=== PATIENT | female | born 1930 | race Caucasian/White ===

== ENCOUNTER 2018-05-09 13:56 | Outpatient (CLI) | payer MEDICARE, OTHER ==
--- NOTE | 2018-05-09 15:45 | XRAY Report ---
Reason: COUGH Procedure Date: 05/09/2018 Accession Number: [id number] / [id number] Procedure: WCP - Chest 2 View X-Ray CPT Code: 51016 FULL RESULT: EXAM: CHEST RADIOGRAPHY EXAM DATE: 05/09/2018 02:18 PM. CLINICAL HISTORY: Cough. COMPARISON: None. TECHNIQUE: 2 views. FINDINGS: Lungs/Pleura: No focal opacities evident. No pleural effusion. No pneumothorax. Normal volumes. Mediastinum: Calcic cases of the aortic arch, cardiac silhouette within limits for size. Other: Surgical clips in the epigastric region. IMPRESSION: No pneumonia. RADIA
== END 2018-05-09 13:57 | disposition home or self-care (01) ==
LOC: DI.WCP 13:56
PROVIDERS: ATTEND Physician Assistant
DX: R05 Cough (principal)
CPT/HCPCS: 71046

== ENCOUNTER 2018-09-04 11:21 | Outpatient (CLI) | payer MEDICARE, OTHER ==
[2018-09-04 19:07] LABS: BASOPHILS # (AUTO) 0.1 10^3/uL (0.0-0.1); BASOPHILS % (AUTO) 1.5 %; EOSINOPHILS # (AUTO) 0.4 10^3/uL (0.0-0.7); EOSINOPHILS % (AUTO) 4.8 %; HGB - HEMOGLOBIN 14.1 g/dL (12.0-16.0); LYMPHOCYTES # (AUTO) 1.3 10^3/uL (1.5-3.5); LYMPHOCYTES % (AUTO) 17.1 %; MEAN CORPUSCULAR HEMOGLOBIN 28.3 pg (27.0-31.0); MEAN CORPUSCULAR HGB CONC 30.5 g/dL (32.0-36.0); MEAN CORPUSCULAR VOLUME 92.8 fL (81.0-99.0); MEAN PLATELET VOLUME 11.8 fL (7.9-10.8); MONOCYTES % (AUTO) 12.7 %; NEUTROPHILS # (AUTO) 4.8 10^3/uL (1.5-6.6); NEUTROPHILS % (AUTO) 63.5 %; PLT - PLATELET COUNT 228 10^3/uL (130-450); RED BLOOD COUNT 4.99 10^6/uL (4.20-5.40); RED CELL DISTRIBUTION WIDTH 13.7 % (12.0-15.0); WHITE BLOOD COUNT 7.6 x10^3/uL (4.8-10.8)
[2018-09-04 19:30] LABS: ALBUMIN/GLOBULIN RATIO 1.5 (1.0-2.2); BILIRUBIN,TOTAL 0.9 mg/dL (0.2-1.0); CALCIUM 9.7 mg/dL (8.5-10.3); CREATININE 1.3 mg/dL (0.4-1.0); TOTAL PROTEIN 6.6 g/dL (6.7-8.2)
== END 2018-09-04 11:22 | disposition home or self-care (01) ==
LOC: LAB.WCP 11:21
PROVIDERS: ATTEND Physician Assistant
DX: J44.1 Chronic obstructive pulmonary disease with (acute) exacerbation (principal); R63.5 Abnormal weight gain; N95.1 Menopausal and female climacteric states
CPT/HCPCS: 36415; 80053; 83880; 84443; 85025

== ENCOUNTER 2018-09-06 11:37 | Outpatient (CLI) | payer MEDICARE, OTHER ==
[2018-09-06] MEDS ORDERED: IOVERSOL 320 100 ML VIAL IVP ONE ×2 (11:58→15:15)
[2018-09-06] MEDS ORDERED: IOVERSOL 320 50 ML VIAL ONE (11:58)
[2018-09-06] MEDS ORDERED: IOVERSOL 320 50 ML VIAL PO ONE (15:15)
--- NOTE | 2018-09-06 15:59 | CT Report ---
Reason: SHORTNESS OF BREATH,FORMER SMOK,ABDOMINAL PAIN Procedure Date: 09/06/2018 Accession Number: [id number] / [id number] Procedure: CT - Abdomen/Pelvis W CPT Code: FULL RESULT: EXAM: CT CHEST, ABDOMEN AND PELVIS EXAM DATE: 09/06/2018 01:02 PM. CLINICAL HISTORY: Shortness of breath, former smoker, abdominal pain. COMPARISONS: CHEST W/ 09/06/2018 12:48 PM. TECHNIQUE: Routine helical CT imaging was performed through the chest, abdomen, and pelvis. IV contrast: 90 mL Optiray 320. Enteric contrast: No. Reconstructions: Coronal and sagittal. In accordance with CT protocol optimization, one or more of the following dose reduction techniques were utilized for this exam: automated exposure control, adjustment of mA and/or KV based on patient size, or use of iterative reconstructive technique. FINDINGS: Lungs/Pleura: The lungs demonstrates bilateral peripheral fine interstitial thickening in an upper lobe predominant distribution with a few tree-in-bud opacities peripherally. Both lung bases demonstrate mild bronchiectasis posteriorly. In this setting, a few lung nodules are detected which measure 5 mm or less. Right upper lobe 4 mm nodule image 20 series 3. Right middle lobe 4 mm nodule image 34. Left upper lobe 4 mm nodule image 24. No lobar consolidation or dominant lung mass. No pleural effusion or pneumothorax. Mediastinum: There is left ventricular hypertrophy. There are mild to moderate calcifications of the coronary vessels. There is no pericardial effusion. There is no mediastinal lymphadenopathy by size criteria. There are moderate calcifications of the thoracic aorta. Liver: Normal. Gallbladder/Bile Ducts: Unremarkable. Spleen: Normal. Pancreas: Normal. Adrenal Glands: Normal. Kidneys: Normal. No masses or hydronephrosis. Peritoneal Cavity/Bowel: There is thickening of the cecal wall as well as abnormally narrow caliber appearance of the terminal ileum without acute inflammatory stranding in the pericecal region. There is extensive essentially pancolonic diverticulosis. There is no free fluid or free air. There is no bowel obstruction. There is no lymphadenopathy. A 0.9 cm calcification is seen in the omentum. Pelvic Organs: Evaluation of the pelvis is somewhat limited by streak artifact from the hip prosthesis. Within these limitations no gross abnormality is detected. Vasculature: There is extensive atherosclerotic disease without abdominal aortic aneurysm. Bones: Patient is status post right total hip arthroplasty and status post lower lumbar spine posterior fusion and decompression. No aggressive osseous lesions are seen. Other: None. IMPRESSION: Cecal wall thickening and abnormally narrow caliber appearance of the terminal ileum. Recommendation: Consideration for colonoscopy and correlation to potential history of inflammatory bowel disease. Recommend follow-up of the described nodule(s) according to the following guidelines: Fleischner Society Recommendations 2017 MacMahon et al. Radiology 2017 Solid Nodules-Low Risk Patients: <6 mm (single or multiple) - No routine follow-up* Solid Nodules-High Risk Patients: <6 mm (single or multiple) -Optional CT at 12 months* *Nodules < 6mm do not require routine follow-up, but suspicious nodule morphology, upper lobe location, or both may warrant 12 month follow-up RADIA
== END 2018-09-06 11:38 | disposition home or self-care (01) ==
LOC: DI 11:37
PROVIDERS: ATTEND Physician Assistant
DX: R10.9 Unspecified abdominal pain (principal); R06.02 Shortness of breath; Z87.891 Personal history of nicotine dependence
CPT/HCPCS: 74177; Q9967

== ENCOUNTER 2018-09-12 14:19 | Outpatient (CLI) | payer MEDICARE, OTHER ==
--- NOTE | 2018-09-12 15:06 | XRAY Report ---
Reason: BACK PAIN Procedure Date: 09/12/2018 Accession Number: [id number] / [id number] Procedure: XRN - Lumbar Spine 2 View CPT Code: FULL RESULT: EXAM: LUMBOSACRAL SPINE RADIOGRAPHY EXAM DATE: 09/12/2018 02:37 PM. CLINICAL HISTORY: Back pain. COMPARISONS: ABDOMEN/PELVIS W/ 09/06/2018 12:48 PM. TECHNIQUE: 3 views. FINDINGS: Lateral views are degraded by motion. Alignment: The patient is status post posterior fusion of L4 on L5 with bilateral pedicle screws and interconnecting rods with suggestion of intervening bone graft in the disk space, appearance of incomplete fusion with approximately 0.8 cm anterolisthesis of L4 on L5 which is greater than what is demonstrated on the recent CT abdomen and pelvis, possibly due to technique given marked motion degradation of the lateral views. There is apparent minimal retrolisthesis of L2 on L3, approximately 4 mm, similar to the CT appearance. AP projection demonstrates S-shaped thoracolumbar scoliosis. Bones: Five bbu-puk-ppaigaz lumbar vertebral bodies are present. The bones are qualitatively osteopenic; this limits evaluation for underlying fractures or masses. No definite fracture is detected. Disks: Disk space heights are mostly preserved as visualized. Facets: Multilevel facet arthropathy is poorly characterized due to osteopenia and motion. Sacroiliac Joints: Unremarkable. Soft Tissues: Extensive diverticulosis is demonstrated with hyperdense material in the descending colon. IMPRESSION: Study limited by motion. Status post L4 on L5 posterior fusion with anterolisthesis and without osseous union across the disk space as described. Osteopenia. RADIA
== END 2018-09-12 14:20 | disposition home or self-care (01) ==
LOC: DI.N 14:19
PROVIDERS: ATTEND Physician Assistant
DX: M54.5 Low back pain (principal); Z98.1 Arthrodesis status
CPT/HCPCS: 72100

== ENCOUNTER 2018-11-06 07:48 | Outpatient (CLI) | payer MEDICARE, OTHER ==
--- NOTE | 2018-09-06 15:59 | CT Report ---
Reason: SHORT OF BREATH, FORMER SMOKER, ABD PAIN. Procedure Date: 09/06/2018 Accession Number: [id number] / [id number] Procedure: CT - CHEST W CPT Code: FULL RESULT: EXAM: CT CHEST, ABDOMEN AND PELVIS EXAM DATE: 09/06/2018 01:02 PM. CLINICAL HISTORY: Shortness of breath, former smoker, abdominal pain. COMPARISONS: CHEST W/ 09/06/2018 12:48 PM. TECHNIQUE: Routine helical CT imaging was performed through the chest, abdomen, and pelvis. IV contrast: 90 mL Optiray 320. Enteric contrast: No. Reconstructions: Coronal and sagittal. In accordance with CT protocol optimization, one or more of the following dose reduction techniques were utilized for this exam: automated exposure control, adjustment of mA and/or KV based on patient size, or use of iterative reconstructive technique. FINDINGS: Lungs/Pleura: The lungs demonstrates bilateral peripheral fine interstitial thickening in an upper lobe predominant distribution with a few tree-in-bud opacities peripherally. Both lung bases demonstrate mild bronchiectasis posteriorly. In this setting, a few lung nodules are detected which measure 5 mm or less. Right upper lobe 4 mm nodule image 20 series 3. Right middle lobe 4 mm nodule image 34. Left upper lobe 4 mm nodule image 24. No lobar consolidation or dominant lung mass. No pleural effusion or pneumothorax. Mediastinum: There is left ventricular hypertrophy. There are mild to moderate calcifications of the coronary vessels. There is no pericardial effusion. There is no mediastinal lymphadenopathy by size criteria. There are moderate calcifications of the thoracic aorta. Liver: Normal. Gallbladder/Bile Ducts: Unremarkable. Spleen: Normal. Pancreas: Normal. Adrenal Glands: Normal. Kidneys: Normal. No masses or hydronephrosis. Peritoneal Cavity/Bowel: There is thickening of the cecal wall as well as abnormally narrow caliber appearance of the terminal ileum without acute inflammatory stranding in the pericecal region. There is extensive essentially pancolonic diverticulosis. There is no free fluid or free air. There is no bowel obstruction. There is no lymphadenopathy. A 0.9 cm calcification is seen in the omentum. Pelvic Organs: Evaluation of the pelvis is somewhat limited by streak artifact from the hip prosthesis. Within these limitations no gross abnormality is detected. Vasculature: There is extensive atherosclerotic disease without abdominal aortic aneurysm. Bones: Patient is status post right total hip arthroplasty and status post lower lumbar spine posterior fusion and decompression. No aggressive osseous lesions are seen. Other: None. IMPRESSION: Cecal wall thickening and abnormally narrow caliber appearance of the terminal ileum. Recommendation: Consideration for colonoscopy and correlation to potential history of inflammatory bowel disease. Recommend follow-up of the described nodule(s) according to the following guidelines: Fleischner Society Recommendations 2017 MacMahon et al. Radiology 2017 Solid Nodules-Low Risk Patients: <6 mm (single or multiple) - No routine follow-up* Solid Nodules-High Risk Patients: <6 mm (single or multiple) -Optional CT at 12 months* *Nodules < 6mm do not require routine follow-up, but suspicious nodule morphology, upper lobe location, or both may warrant 12 month follow-up RADIA
== END 2018-11-06 07:49 | disposition home or self-care (01) ==
LOC: DI 07:48
PROVIDERS: ATTEND Physician Assistant
DX: R06.02 Shortness of breath (principal); I10 Essential (primary) hypertension; I51.7 Cardiomegaly; K63.9 Disease of intestine, unspecified; R91.8 Other nonspecific abnormal finding of lung field
CPT/HCPCS: 71260; 93306

== ENCOUNTER 2020-02-10 14:47 | Outpatient (CLI) | payer MEDICARE, OTHER ==
[2020-02-10 18:42] LABS: BASOPHILS # (AUTO) 0.1 10^3/uL (0.0-0.1); BASOPHILS % (AUTO) 0.9 %; EOSINOPHILS # (AUTO) 0.2 10^3/uL (0.0-0.7); EOSINOPHILS % (AUTO) 2.6 %; LYMPHOCYTES # (AUTO) 1.6 10^3/uL (1.5-3.5); LYMPHOCYTES % (AUTO) 17.3 %; MEAN CORPUSCULAR HEMOGLOBIN 29.8 pg (27.0-31.0); MEAN CORPUSCULAR HGB CONC 32.8 g/dL (32.0-36.0); MEAN CORPUSCULAR VOLUME 90.9 fL (81.0-99.0); MONOCYTES # (AUTO) 1.1 10^3/uL (0.0-1.0); NEUTROPHILS # (AUTO) 6.1 10^3/uL (1.5-6.6); NEUTROPHILS % (AUTO) 66.8 %; PLT - PLATELET COUNT 243 10^3/uL (130-450); RED BLOOD COUNT 5.03 10^6/uL (4.20-5.40); RED CELL DISTRIBUTION WIDTH 13.1 % (12.0-15.0); WHITE BLOOD COUNT 9.1 x10^3/uL (4.8-10.8)
[2020-02-10 19:12] LABS: ALBUMIN 4.3 g/dL (3.2-5.5); ALBUMIN/GLOBULIN RATIO 1.5 (1.0-2.2); ALKALINE PHOSPHATASE 60 IU/L (42-121); ALT ALANINE AMINOTRANSFERASE 41 IU/L (10-60); AST ASPARTATE AMINOTRANSFERASE 44 IU/L (10-42); BILIRUBIN,TOTAL 0.7 mg/dL (0.2-1.0); BUN - BLOOD UREA NITROGEN 31 mg/dL (6-20); CALCIUM 10.1 mg/dL (8.5-10.3); CARBON DIOXIDE - CO2 24 mmol/L (21-32); CHLORIDE 102 mmol/L (101-111); CHOL/HDL RATIO 3.8 (<4.4); CHOLESTEROL 268 mg/dL; CREATININE 1.4 mg/dL (0.4-1.0); GLUCOSE 96 mg/dL (70-100); HDL CHOLESTEROL 71 mg/dL; LDL CHOLESTEROL,CALCULATED 158 mg/dL; LDL/HDL RATIO 2.2 (<4.4); SODIUM 137 mmol/L (135-145); TOTAL PROTEIN 7.1 g/dL (6.7-8.2); VLDL CHOLESTEROL 39 mg/dL
[2020-02-10 19:27] LABS: FOLATE 14.63 ng/mL (5.90 - >24.8)
== END 2020-02-10 23:59 | disposition home or self-care (01) ==
LOC: LAB.WCP 14:47
PROVIDERS: ATTEND Physician Assistant
DX: E78.5 Hyperlipidemia, unspecified (principal); R20.2 Paresthesia of skin
CPT/HCPCS: 36415; 80053; 80061; 82607; 82746; 83721; 85025

== ENCOUNTER 2020-03-01 21:44 | Outpatient (CLI) | payer MEDICARE, OTHER | END 2020-03-01 21:45 | disposition short-term general hospital (02) | LOC: EMS 21:44 | PROVIDERS: ATTEND Surgery | DX: R19.7 Diarrhea, unspecified (principal); R42 Dizziness and giddiness; R61 Generalized hyperhidrosis | CPT/HCPCS: A0425; A0427; A0888 ==

== ENCOUNTER 2020-07-28 08:00 | Outpatient (CLI) | payer MEDICARE, OTHER ==
[2020-07-28 18:15] LABS: THYROID STIMULATING HORMONE 1.85 uIU/mL (0.34-5.60)
[2020-07-30 15:46] LABS: ALBUMIN 4.2 g/dL (3.8-4.8); ALPHA 1 GLOBULIN 0.3 g/dL (0.2-0.3); ALPHA 2 GLOBULIN 0.8 g/dL (0.5-0.9); BETA 1 GLOBULIN 0.4 g/dL (0.4-0.6); BETA 2 GLOBULIN 0.2 g/dL (0.2-0.5); GAMMA GLOBULIN 0.8 g/dL (0.8-1.7)
== END 2020-07-28 23:59 | disposition home or self-care (01) ==
LOC: LAB.WCP 08:00
PROVIDERS: ATTEND Family Medicine
DX: G62.9 Polyneuropathy, unspecified (principal); F32.9 Major depressive disorder, single episode, unspecified
CPT/HCPCS: 36415; 82607; 84155; 84165; 84443; 85651; 86140

== ENCOUNTER 2020-12-24 14:41 | Outpatient (CLI) | payer MEDICARE, OTHER | END 2020-12-24 23:59 | disposition home or self-care (01) | LOC: LAB.WCP 14:41 | PROVIDERS: ATTEND Family Medicine | DX: M35.3 Polymyalgia rheumatica (principal) | CPT/HCPCS: 36415; 85651; 86140 ==

== ENCOUNTER 2021-04-19 08:00 | Outpatient (CLI) | payer MEDICARE, OTHER ==
[2021-04-19 18:00] LABS: BASOPHILS # (AUTO) 0.1 10^3/uL (0.0-0.1); BASOPHILS % (AUTO) 0.8 %; EOSINOPHILS # (AUTO) 0.2 10^3/uL (0.0-0.7); EOSINOPHILS % (AUTO) 2.1 %; HCT - HEMATOCRIT 45.5 % (37.0-47.0); HGB - HEMOGLOBIN 14.7 g/dL (12.0-16.0); LYMPHOCYTES # (AUTO) 1.5 10^3/uL (1.5-3.5); LYMPHOCYTES % (AUTO) 17.9 %; MEAN CORPUSCULAR HEMOGLOBIN 29.4 pg (27.0-31.0); MEAN CORPUSCULAR HGB CONC 32.3 g/dL (32.0-36.0); NEUTROPHILS # (AUTO) 5.7 10^3/uL (1.5-6.6); NEUTROPHILS % (AUTO) 66.8 %; PLT - PLATELET COUNT 222 10^3/uL (130-450); RED CELL DISTRIBUTION WIDTH 13.2 % (12.0-15.0); WHITE BLOOD COUNT 8.6 x10^3/uL (4.8-10.8)
[2021-04-19 18:26] LABS: ALBUMIN 4.1 g/dL (3.2-5.5); ALBUMIN/GLOBULIN RATIO 1.4 (1.0-2.2); ALKALINE PHOSPHATASE 53 IU/L (42-121); ALT ALANINE AMINOTRANSFERASE 32 IU/L (10-60); AST ASPARTATE AMINOTRANSFERASE 37 IU/L (10-42); BILIRUBIN,TOTAL 0.8 mg/dL (0.2-1.0); BUN - BLOOD UREA NITROGEN 20 mg/dL (6-20); CALCIUM 10.2 mg/dL (8.5-10.3); CARBON DIOXIDE - CO2 26 mmol/L (21-32); CHLORIDE 103 mmol/L (101-111); CHOL/HDL RATIO 2.9 (<4.4); CHOLESTEROL 186 mg/dL; CREATININE 1.4 mg/dL (0.4-1.0); GFR - MDRD 35 (>89); GLUCOSE 99 mg/dL (70-100); HDL CHOLESTEROL 64 mg/dL; LDL CHOLESTEROL,CALCULATED 89 mg/dL; LDL/HDL RATIO 1.4 (<4.4); LIPASE 35 U/L (22-51); POTASSIUM 4.4 mmol/L (3.5-5.0); SODIUM 138 mmol/L (135-145); TRIGLYCERIDES 164 mg/dL; VLDL CHOLESTEROL 33 mg/dL
== END 2021-04-19 23:59 | disposition home or self-care (01) ==
LOC: LAB.WCP 08:00
PROVIDERS: ATTEND Family Medicine
DX: R10.12 Left upper quadrant pain (principal); R59.0 Localized enlarged lymph nodes; E78.5 Hyperlipidemia, unspecified
CPT/HCPCS: 36415; 80053; 80061; 83615; 83690; 83721; 85025

== ENCOUNTER 2021-04-30 12:08 | Outpatient (CLI) | payer MEDICARE, OTHER ==
[2021-04-30] MEDS ORDERED: IOPAMIDOL-300 50 ML VIAL ONE (12:26)
[2021-04-30] MEDS ORDERED: IOVERSOL 320 100 ML VIAL IVP ONE ×2 (12:26→19:48)
[2021-04-30] MEDS ORDERED: IOPAMIDOL-300 50 ML VIAL PO ONE (19:48)
--- NOTE | 2021-05-01 09:45 | CT Report ---
PROCEDURE: CT chest without contrast INDICATIONS: LUNG NODULE, RIGHT INGUINAL LYMPHADENOPATHY ABD PA TECHNIQUE: Noncontrast 1mm axial images were acquired from the pulmonary apices to the posterior costophrenic an gles. Axial 5 mm soft tissue kernel reconstructions were performed as well as 8 mm axial MIP and cor onal and sagittal 5 mm reformations. For radiation dose reduction, the following was used: automate d exposure control, adjustment of mA and/or kV according to patient size. COMPARISON: CT chest 10/06/2018 FINDINGS: Image quality: Excellent. Lungs and pleura:Left upper lobe 4 mm nodule again noted on image 3/108. Pleural-based right middle l obe nodule measures 4 mm on image 3/159. No new nodules. Peripheral chronic interstitial changes are stable from the prior. No focal infiltrate, pleural effusion or pneumothorax. Mediastinum: Heart size is normal. No pericardial effusion. No mediastinal adenopathy by size crit eria. Thoracic aorta and central pulmonary arteries are normal in size. Esophagus is normal in vasile eri. No hiatal hernia. Dense coronary artery and aortic vascular calcification present. Dense calci fication and mitral valve annulus noted as well. Bones and chest wall: No suspicious bony lesions. There is now a T9 wedge-shaped compression fractur e with 30% anterior height loss and no retropulsed fracture fragment. No axillary or supraclavicular adenopathy by size criteria. The thyroid is normal in size and there are no incidental findings. Bi lateral glenohumeral joint arthritis. Abdomen: Visualized upper abdominal solid organs and bowel loops appear normal in the absence of con trast. Multiple diverticula arise from the transverse colon. IMPRESSION: 1. Stable benign-appearing 4 mm pulmonary nodules, unchanged from 2019. 2. Diffuse peripheral chronic interstitial changes, stable. 3. New T9 compression fracture with no retropulsed fracture fragment Reviewed by: Dominic Kamara MD on 05/01/2021 8:43 AM [place] Approved by: Dominic Kamara MD on 05/01/2021 8:43 AM [place] Station ID: [id number]
--- NOTE | 2021-05-01 21:41 | CT Report ---
PROCEDURE: Abdomen/Pelvis W INDICATIONS: LUNG NODULE, RIGHT INGUINAL LYMPHADENOPATHY ABD PA CONTRAST: IV CONTRAST: Optiray 320 ml: 100 PO CONTRAST: Isovue 300 ml50 TECHNIQUE: After the administration of IV and oral contrast, 5 mm thick sections acquired from the diaphragms to the symphysis. 5 mm thick coronal and sagittal reformats were acquired. For radiation dose reducti on, the following was used: automated exposure control, adjustment of mA and/or kV according to shelli ent size. COMPARISON: 08/24/2018 FINDINGS: Image quality: Excellent. ABDOMEN: Lung bases: Circumferential peripheral subpleural reticulation with trace traction bronchiectasis and groundglass opacity in the costophrenic sulci.. Heart size is normal. Heavy coronary artery and mi tral annular calcification. Solid organs: Liver and spleen are normal in size and enhancement. Gallbladder is normal Biliary s ystem is non dilated. Pancreas enhances normally. No adrenal nodules. Kidneys demonstrate normal s ize and enhancement, without hydronephrosis. Peritoneum and bowel: Surgical changes of [place] fundoplication at the GE junction. The stomach is o therwise normal. Small bowel loops are normal without obstruction. There is extensive diverticulosis throughout the transverse, descending, and sigmoid colon. No acute diverticulitis. No free fluid or a ir. Nodes and vessels: No retroperitoneal or mesenteric adenopathy by size criteria. Aorta and inferior vena cava are normal in size. Heavy splenic artery calcification. Heavy abdominal aortic calcificat ion. Miscellaneous: No ventral hernias. PELVIS: Genitourinary: Bladder wall thickness is normal. The uterus is absent. No suspicious adnexal masses . Miscellaneous: No inguinal hernias or adenopathy. Bones: No suspicious bony lesions. No vertebral body compression fractures. Right hip arthroplasty . Surgical changes of L4-5 fusion. Trace retrolisthesis L1 on 2 and L2 on 3. IMPRESSION: 1. No visible right inguinal adenopathy. 2. Extensive colonic diverticulosis without acute diverticulitis. 3. Heavy calcific coronary artery and systemic atherosclerosis. Reviewed by: Gifty Hamilton MD on 05/01/2021 9:39 PM PST Approved by: Gifty Hamilton MD on 05/01/2021 9:39 PM PST Station ID: [id number]
== END 2021-04-30 12:09 | disposition home or self-care (01) ==
LOC: DI 12:08
PROVIDERS: ATTEND Family Medicine
DX: R59.0 Localized enlarged lymph nodes (principal); K57.30 Diverticulosis of large intestine without perforation or abscess without bleeding; I25.10 Atherosclerotic heart disease of native coronary artery without angina pectoris; R91.8 Other nonspecific abnormal finding of lung field; M48.54XA Collapsed vertebra, not elsewhere classified, thoracic region, initial encounter for fracture
CPT/HCPCS: 71250; 74177; Q9967

== ENCOUNTER 2021-06-07 11:23 | Outpatient (CLI) | payer MEDICARE, OTHER ==
--- NOTE | 2021-06-07 16:22 | DEXA Report ---
PROCEDURE: Dexa Spine and/or Hip INDICATIONS: OTH DISRD OF BONE DENSITY AND STRUCTURE, OTHER SIT TECHNIQUE: Dual energy x-ray absorptiometry (DXA) was performed on a [employer] System. Regions measur ed are the AP Spine, femoral neck, and if needed forearm. COMPARISON: None. FINDINGS: Lumbar Spine: Bone Mineral Density 0.966 g/cm/cm,T score -1.7, osteopenia Left Femoral Neck: Bone Mineral Density 0.803 g/cm/cm, T score -1.7, osteopenia (T score greater or equal to -1.0: NORMAL) (T score from -1.1 to -2.4: OSTEOPENIA) (T score less than or equal to -2.5 to: OSTEOPOROSIS) Impression: Bone mineral density as detailed above. Patients with diagnosis of osteoporosis or osteopenia should have regular bone mineral density assess ment. For those eligible for Medicare, routine testing is allowed once every 2 years. Testing frequ ency can be increased for patients who have rapidly progressing disease or for those who are receivin g medical therapy to restore bone mass. Reviewed by: Otto Harrison MD on 06/07/2021 4:20 PM PDT Approved by: Otto Harrison MD on 06/07/2021 4:20 PM PDT Station ID: [id number]
--- NOTE | 2021-06-07 18:39 | Ultrasound Report ---
PROCEDURE: Head or Neck Soft Tissue INDICATIONS: LOCALIZED SWELLING MASS OR LUMP TECHNIQUE: Real time scanning was performed of the neck region of interest, with image documentation . COMPARISON: None. FINDINGS: The right submandibular gland measures 3 x 1.1 x 3.2 cm. Left submandibular gland measures 2.4 x 1.1 x 3 cm. Both submandibular glands are homogeneous with normal and symmetric vascularity. No signs of sialoadenitis. A normal-appearing right lobe 2 lymph node is seen measuring 3 mm in short axis diamet er. A 0.8 cm isoechoic to mildly hyperechoic nodule is incidentally noted in the left thyroid lobe with s mooth margins and punctate echogenic foci. This qualifies as TI-RADS category 4: Moderately suspiciou s. Given size less than 1 cm, no dedicated imaging follow-up is recommended. IMPRESSION: 1.No significant sonographic abnormality is seen in the right submandibular area of interest. 2.Incidental subcentimeter right thyroid nodule requires no dedicated imaging follow-up based on TI R ADS criteria. Reviewed by: Jaylen North MD on 06/07/2021 5:38 PM JESUS Approved by: Jaylen North MD on 06/07/2021 5:38 PM JESUS Station ID: [id number]
== END 2021-06-07 11:24 | disposition home or self-care (01) ==
LOC: DI 11:23
PROVIDERS: ATTEND Family Medicine
DX: R22.1 Localized swelling, mass and lump, neck (principal); M85.89 Other specified disorders of bone density and structure, multiple sites

== ENCOUNTER 2021-06-19 15:27 | Outpatient (CLI) | payer MEDICARE, OTHER | END 2021-06-19 15:28 | disposition critical access hospital (66) | LOC: EMS 15:27 | DX: S01.81XA Laceration without foreign body of other part of head, initial encounter (principal); S00.12XA Contusion of left eyelid and periocular area, initial encounter; W18.30XA Fall on same level, unspecified, initial encounter; Y93.01 Activity, walking, marching and hiking; Y92.099 Unspecified place in other non-institutional residence as the place of occurrence of the external cause | CPT/HCPCS: A0425; A0429 ==

== ENCOUNTER 2021-06-19 15:43 | Emergency (ER) | payer MEDICARE, OTHER ==
--- NOTE | 2021-06-19 15:47 | ED Physician Documentation ---
PD HPI HEAD INJURY - Stated complaint Stated Complaint: FALL/HEAD INJURY - History obtained from History obtained from: Patient, EMS - History of Present Illness Mechanism of head injury: Fell Where head injury occurred: A house / apartment Timing - onset: Today Location of injury: Front Associated symptoms: No: LOC, AMS, Amnesia, Nausea / vomiting, Neck pain, Paresthesias, Seizures, Ear drainage, Nasal drainage Symptoms improve with: Rest Symptoms worsen with: Palpation, Movement Contributing factors: No: Anticoagulated Similar symptoms before: Has not had sx before Recently seen: Not recently seen - Additional information Additional information: 89-year-old female walking into her apartment tripped and fell forward onto her face. She has a laceration to her forehead she did not have loss of consciousness associated with the fall and she has been able to control bleeding with direct pressure. She was able to climb 2 flights of stairs to get back into her apartment to call 911. Medics transported the patient to the hospital with concern of elevated blood pressure. The patient is not on blood thinners she denies pain elsewhere in her body denies nausea dizziness headache or difficulty concentrating. Review of Systems Constitutional: denies: Fever Eyes: denies: Loss of vision, Decreased vision Ears: denies: Ear pain Nose: denies: Congestion Throat: denies: Sore throat Cardiac: denies: Chest pain / pressure, Palpitations Respiratory: denies: Dyspnea, Cough GI: denies: Abdominal Pain, Nausea, Vomiting, Diarrhea : denies: Dysuria, Frequency PD PAST MEDICAL HISTORY - Past Medical History Musculoskeletal: Osteoarthritis, Fibromyalgia - Past Surgical History Past Surgical History: Yes Ortho: Hip replacement, Spine surgery - Present Medications Home Medications: Ambulatory Orders Medication Instructions Recorded Confirmed Aspirin [Children's Aspirin] 81 mg PO DAILY 09/10/14 09/10/14 Hydrocodone/Acetaminophen 1 - 2 each PO Q6H PRN #15 tablet 09/10/14 [Hydrocodon-Acetaminophen 5-325] Losartan [Cozaar] 100 mg PO DAILY 09/10/14 09/10/14 Omeprazole 20 mg PO 09/10/14 09/10/14 - Allergies Allergies/Adverse Reactions: Allergies Allergy/AdvReac Type Severity Reaction Status Date / Time cimetidine [From [facility]] Allergy Unknown Verified 06/19/21 16:42 cimetidine HCl * Allergy Unknown Verified 06/19/21 16:42 [From Tagamet] diazepam AdvReac Unknown Verified 06/19/21 16:42 - Social History Does the pt smoke?: No Smoking Status: Never smoker Does the pt drink ETOH?: No Does the pt have substance abuse?: No - Immunizations Immunizations are current?: Yes - POLST Patient has POLST: No PD ED PE NORMAL - Vitals Vital signs reviewed: Yes (hypertensive ) - General General: Alert and oriented X 3, No acute distress, Well developed/nourished, Other (89-year-old female covered in blood with a bandage over her forehead is alert oriented and cooperative pleasant.) - HEENT HEENT: PERRL, EOMI - Neck Neck: Supple, no meningeal sign, Other (There is mild tenderness to the mid and upper cervical spine to deep palpation.) - Cardiac Cardiac: RRR, No murmur - Respiratory Respiratory: No respiratory distress, Clear bilaterally, Other (No chest wall tenderness) - Abdomen Abdomen: Normal bowel sounds, Soft, Non tender, Non distended, No organomegaly - Back Back: No CVA TTP, No spinal TTP - Derm Derm: Normal color, Warm and dry, No rash - Extremities Extremities: No deformity, No edema - Neuro Neuro: Alert and oriented X 3, reel cutter 2-12 intact, No motor deficit, No sensory deficit, Normal speech Eye Opening: Spontaneous Motor: Obeys Commands Verbal: Oriented GCS Score: 15 - Psych Psych: Normal mood, Normal affect Results - Vitals Vitals: Vital Signs - 24 hr 06/19/21 06/19/21 06/19/21 15:51 16:21 17:33 Temperature 36.8 C Heart Rate 83 72 75 Respiratory 21 17 16 Rate Blood Pressure 198/91 H 194/84 H 209/85 H O2 Saturation 98 95 98 Oxygen O2 Source Room air - Rads (name of study) head Radiology: Prelim report reviewed (Impression: Atrophy and chronic ischemic change without acute hemorrhage or mass-effect.), EMP read indepedently, See rad report cervical spine Radiology: Prelim report reviewed (Impression: No evidence of fracture or traumatic malalignment. 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.), EMP read indepedently, See rad report Procedures - Laceration (location) forehead Length in cm: 8 (T shaped laceration ) Wound type: Linear, Into subcut fat, Clean Neurovascular status: Sensory intact, Motor intact, Vascular intact Anesthesia: Lidocaine 1% Wound preparation: Hibiclens, Irrigated copiously NS, Wound explored, To the base Skin layer closure: Nylon, Dermabond (to nasal bridge, upper lip and left elbow), Interrupted, Size #-0 - enter number (6-0), Sutures - enter # (19) Other: Patient tolerated well, No complications, Neurovascular intact, Tetanus UTD PD MEDICAL DECISION MAKING - ED course Complexity details: reviewed old records, reviewed results, re-evaluated patient, considered differential, d/w patient, d/w family ED course: 89-year-old female ground-level fall and laceration to her forehead did not have loss of consciousness she has no evidence of intracranial hemorrhage and no fracture of the neck. She has abrasions and contusions associated with a fall she does have some deep abrasion to the upper lip and to the nasal bridge these were repaired with Dermabond. She has a 8 cm T-shaped laceration to her forehead and this is repaired with 6-0 nylon. Departure - Departure Disposition: 01 Home, Self Care Clinical Impression: Abrasions of multiple sites Facial contusion Qualifiers: Encounter type: initial encounter Qualified Code(s): S00.83XA - Contusion of other part of head, initial encounter Forehead laceration Qualifiers: Encounter type: initial encounter Qualified Code(s): S01.81XA - Laceration without foreign body of other part of head, initial encounter Condition: Stable Instructions: ED Abrasion, ED Laceration Facial Skin Glue, ED Laceration Facial Sutr Tape Follow-Up: Ekaterina Freeman DO [Primary Care Provider] - Comments: Sandra Mane, today it looks like the fall you have had did not cause any bleeding in the brain or a broken neck, but you do have multiple lacerations contusions and abrasions. The sutures to your forehead will need to be removed in about 5 days. The glue will wear off in 5 to 7 days. It is likely you will be sore in multiple areas over the next several days. Follow-up with Dr. Freeman as needed. Discharge Date/Time: 06/19/21 17:34
[2021-06-19] MEDS ORDERED: lidocaine 1% 20 ML MDV SUBQ ONE (16:21)
[2021-06-19] MEDS ORDERED: LIDOCAINE 1% 2 ML VIAL SUBQ STA ×2 (16:25)
--- NOTE | 2021-06-19 16:33 | CT Report ---
PROCEDURE: CT cervical spine without contrastd INDICATIONS: head injury neck pain mid/upper cervical spine TECHNIQUE: Noncontrast 3 mm thick sections acquired from the skull base to the T4 level. Sagittal and coronal r eformats were then constructed. For radiation dose reduction, the following was used: automated exp osure control, adjustment of mA and/or kV according to patient size. COMPARISON: None. FINDINGS: Image quality: Excellent. Bones: No fractures or dislocations. Visualized superior ribs are intact. Disc space narrowing and small marginal osteophytes noted in the mid cervical spine without significant central stenosis. Compressor Mechanic niovertebral relationships are normal. Soft tissues: Prevertebral soft tissues are normal in thickness. No paravertebral hematomas. No ap ical pneumothoraces. IMPRESSION: No evidence of fracture or traumatic malalignment. 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
--- NOTE | 2021-06-19 16:38 | CT Report ---
PROCEDURE: CT brain without contrast INDICATIONS: Trauma, pain TECHNIQUE: Noncontrast 4.5 mm thick angled axial sections acquired from the foramen magnum to the vertex. For r adiation dose reduction, the following was used: automated exposure control, adjustment of mA and/or kV according to patient size. COMPARISON: None. FINDINGS: Image quality: Excellent. CSF spaces: Basal cisterns are patent. No extra-axial fluid collections. Ventricles are normal in size and shape. Brain: Moderate atrophy and multifocal white matter chronic ischemic change noted. No intracranial he morrhage or mass effect. Dense cavernous ICA as described vascular calcification noted. Skull and face: Calvarium and visualized facial bones are intact, without suspicious lesions. Left f rontal scalp hematoma present. Incidental hyperostosis frontalis interna noted. Sinuses: Visualized sinuses and mastoids are clear. IMPRESSION: Atrophy and chronic ischemic change without acute hemorrhage or mass effect Reviewed by: Dominic Kamara MD on 06/19/2021 3:36 PM AKDT Approved by: Dominic Kamara MD on 06/19/2021 3:36 PM AKDT Station ID: [id number]
[2021-06-19 17:35] VITALS: BP 209/85
== END 2021-06-19 17:34 | disposition home or self-care (01) ==
LOC: ED 15:43
DX: S01.81XA Laceration without foreign body of other part of head, initial encounter (principal); W01.0XXA Fall on same level from slipping, tripping and stumbling without subsequent striking against object, initial encounter; Y93.01 Activity, walking, marching and hiking; Y92.038 Other place in apartment as the place of occurrence of the external cause
CPT/HCPCS: 12015; 36415; 99284

== ENCOUNTER 2021-07-01 11:38 | Outpatient (CLI) | payer MEDICARE, OTHER ==
--- NOTE | 2021-07-01 13:02 | MRI Report ---
PROCEDURE: Brain W/O INDICATIONS: FALL, HEADACHE, FATIGUE TECHNIQUE: Noncontrast axial T1 spin echo, axial T2 fast spin echo, sagittal and axial FLAIR, coronal T2 fast sp in echo, axial gradient echo, axial diffusion and ADC through the brain. COMPARISON: None. FINDINGS: Image quality: Excellent. CSF Spaces: Basal cisterns are patent. No extra-axial fluid collections. Ventricles are normal in size and shape. Brain: No intracranial masses or hemorrhage. Keller/white matter interface is normal. Moderate to sev ere small vessel ischemic change. Brainstem appears normal. Diffusion-weighted images demonstrate no acute ischemic insult. No chronic ischemic insults. Normal intravascular flow voids are present. Skull and face: Calvarium has normal marrow signal. Orbits appear normal. Sinuses: Sinuses and mastoids are clear. IMPRESSION: 1. Moderate to severe small vessel ischemic change. 2. No evidence acute stroke, hemorrhage, or mass. Reviewed by: Jay Pruitt MD on 07/01/2021 1:01 PM PDT Approved by: Jay Pruitt MD on 07/01/2021 1:01 PM PDT Station ID: [id number]
== END 2021-07-01 11:39 | disposition home or self-care (01) ==
LOC: DI 11:38
PROVIDERS: ATTEND Physician Assistant
DX: G44.89 Other headache syndrome (principal); I67.82 Cerebral ischemia

== ENCOUNTER 2021-12-07 23:25 | Outpatient (CLI) | payer MEDICARE, OTHER | END 2021-12-07 23:26 | disposition critical access hospital (66) | LOC: EMS 23:25 | DX: R55 Syncope and collapse (principal) | CPT/HCPCS: A0425; A0429 ==

== ENCOUNTER 2021-12-07 23:45 | Emergency (ER) | payer MEDICARE, OTHER ==
--- OUTSIDE RECORDS SUMMARY | 2021-12-07 23:53 | EXTERNAL MEDICAL SUMMARY RPT | Continuity of Care Document ---
:1930 Author Organization [facility] Address [address] [place] [address] Phone Allergies No information. Encounters No information. Functional Status No information. Immunizations No information. Medications No information. Problems No information. Procedures No information. Results/Labs test date author facility value unit interpret ation Result panel 1 (unknown) (no (unknown) (unknown) (no value) (units (unk nown) date) unknown) (unknown) (no (unknown) (unknown) (no value) (units (unk nown) date) unknown) (unknown) (no (unknown) (unknown) [place], [place] (units ( unknown) date) [id number] unknown) (unknown) (no (unknown) (unknown) Draft (units (unkno wn) date) unknown) (unknown) (no (unknown) (unknown) Nurse Office (units (u nknown) date) Visit unknown) (unknown) (no (unknown) (unknown) [facility] ([facility] date[facility] unknown) (unknown) (no (unknown) (unknown) (no value) (units (unk nown) date) unknown) (unknown) (no (unknown) (unknown) Swabbing (units (unkno wn) date) procedure unknown) explained to patient, name and date confirmed.? (unknown) (no (unknown) (unknown) COVID-19 (units (u nknown) date) unknown) (unknown) (no (unknown) (unknown) 11/01/21 (units (unkno wn) date) unknown) (unknown) (no (unknown) (unknown) [id number] (units (unkno wn) date) unknown) (unknown) (no (unknown) (unknown) Age/Sex: 89 / F (units (unknown) date) Date of Service: unknown) (unknown) (no (unknown) (unknown) Allergies (units (unkn own) date) unknown) (unknown) (no (unknown) (unknown) Attending Dr: (units ( unknown) date) Amor Nguyen unknown) D.O. (unknown) (no (unknown) (unknown) : 1930 (units (unknown) date) Acct:[id number] unknown) (unknown) (no (unknown) (unknown) Dept at (units (unkno wn) date) . unknown) (unknown) (no (unknown) (unknown) Documented By: (units (unknown) date) Amor Nguyen unknown) D.O. 11/01/21 1132 (unknown) (no (unknown) (unknown) Evaluation/Scree (units (unknown) date) sia for possible unknown) COVID-19 completed?: Yes- COVID-19 CPT (unknown) (no (unknown) (unknown) Intake (units (unkno wn) date) unknown) (unknown) (no (unknown) (unknown) Loc: PAIN (units (unkn own) date) unknown) (unknown) (no (unknown) (unknown) Note (units (unkno wn) date) unknown) (unknown) (no (unknown) (unknown) Note: (units (unkno wn) date) unknown) (unknown) (no (unknown) (unknown) Patient here (units (un known) date) today for a unknown) pre-procedure COVID test.?Denies symptoms at this time. (unknown) (no (unknown) (unknown) Patient (units (unkno wn) date) tolerated swab unknown) well and had no additional questions. (unknown) (no (unknown) (unknown) Patient: (units (unkno wn) date) NewsomeSandra unknown) MR#: [id number] (unknown) (no (unknown) (unknown) Reason For Visit (units (unknown) date) unknown) (unknown) (no (unknown) (unknown) Signed By: (units (unk nown) date) unknown) (unknown) (no (unknown) (unknown) Smoking Status: (units (unknown) date) Former smoker unknown) (unknown) (no (unknown) (unknown) This note may (units ( unknown) date) have been all or unknown) partially generated using voice recognition (unknown) (no (unknown) (unknown) Tobacco Status (units (unknown) date) unknown) (unknown) (no (unknown) (unknown) Visit Reasons: (units (unknown) date) Pre Op unknown) (unknown) (no (unknown) (unknown) cimetidine [From (units (unknown) date) TAGAMET] Allergy unknown) (Unknown, Verified 08/11/21 10:48) (unknown) (no (unknown) (unknown) diazepam [From (units (unknown) date) VALIUM] Allergy unknown) (Unknown, Verified 08/11/21 10:48) (unknown) (no (unknown) (unknown) have occurred. (units (unknown) date) If there are any unknown) questions, please contact the Medical Records (unknown) (no (unknown) (unknown) may occur. (units (unk nown) date) Occasional unknown) wrong-word or 'sound-alike' substitutions may have (unknown) (no (unknown) (unknown) occurred due to (units (unknown) date) the inherent unknown) limitations of voice recognition software. Please (unknown) (no (unknown) (unknown) read the note (units ( unknown) date) carefully and unknown) recognize, using context, where these substitutions (unknown) (no (unknown) (unknown) software. (units (unkn own) date) Although every unknown) effort is made to edit content, director of rehabilitation errors Result panel 2 (unknown) (no (unknown) (unknown) (no value) (units (unk nown) date) unknown) (unknown) (no (unknown) (unknown) (no value) (units (unk nown) date) unknown) (unknown) (no (unknown) (unknown) 11/01/21 1157 (units ( unknown) date) unknown) (unknown) (no (unknown) (unknown) [place], [place] (units ( unknown) date) [id number] unknown) (unknown) (no (unknown) (unknown) Nurse Office (units (u nknown) date) Visit unknown) (unknown) (no (unknown) (unknown) Signed (units (unkno wn) date) unknown) (unknown) (no (unknown) (unknown) [facility] (units (unknown) date) [facility] Management unknown) (unknown) (no (unknown) (unknown) (no value) (units (unk nown) date) unknown) (unknown) (no (unknown) (unknown) Swabbing (units (unkno wn) date) procedure unknown) explained to patient, name and date confirmed.? (unknown) (no (unknown) (unknown) COVID-19 (units (u nknown) date) unknown) (unknown) (no (unknown) (unknown) 11/01/21 (units (unkno wn) date) unknown) (unknown) (no (unknown) (unknown) [id number] (units (unkno wn) date) unknown) (unknown) (no (unknown) (unknown) Age/Sex: 89 / F (units (unknown) date) Date of Service: unknown) (unknown) (no (unknown) (unknown) Allergies (units (unkn own) date) unknown) (unknown) (no (unknown) (unknown) Attending Dr: (units ( unknown) date) Amor Nguyen unknown) D.O. (unknown) (no (unknown) (unknown) : 1930 (units (unknown) date) Acct:[id number] unknown) (unknown) (no (unknown) (unknown) Dept at (units (unkno wn) date) . unknown) (unknown) (no (unknown) (unknown) Documented By: (units (unknown) date) Amor Nguyen unknown) D.O. 11/01/21 1132 (unknown) (no (unknown) (unknown) Evaluation/Scree (units (unknown) date) sia for possible unknown) COVID-19 completed?: Yes- COVID-19 CPT (unknown) (no (unknown) (unknown) Intake (units (unkno wn) date) unknown) (unknown) (no (unknown) (unknown) Loc: PAIN (units (unkn own) date) unknown) (unknown) (no (unknown) (unknown) Note (units (unkno wn) date) unknown) (unknown) (no (unknown) (unknown) Note: (units (unkno wn) date) unknown) (unknown) (no (unknown) (unknown) Patient here (units (un known) date) today for a unknown) pre-procedure COVID test.?Denies symptoms at this time. (unknown) (no (unknown) (unknown) Patient (units (unkno wn) date) tolerated swab unknown) well and had no additional questions. (unknown) (no (unknown) (unknown) Patient: (units (unkno wn) date) Sandra Newsome unknown) MR#: [id number] (unknown) (no (unknown) (unknown) Reason For Visit (units (unknown) date) unknown) (unknown) (no (unknown) (unknown) Signed By: (units (unk nown) date) <Electronically unknown) signed by Amor Nguyen D.O.> (unknown) (no (unknown) (unknown) Smoking Status: (units (unknown) date) Former smoker unknown) (unknown) (no (unknown) (unknown) This note may (units ( unknown) date) have been all or unknown) partially generated using voice recognition (unknown) (no (unknown) (unknown) Tobacco Status (units (unknown) date) unknown) (unknown) (no (unknown) (unknown) Visit Reasons: (units (unknown) date) Pre Op unknown) (unknown) (no (unknown) (unknown) ay occur. (units (unkn own) date) Occasional unknown) wrong-word or 'sound-alike' substitutions may have (unknown) (no (unknown) (unknown) cimetidine [From (units (unknown) date) TAGAMET] Allergy unknown) (Unknown, Verified 08/11/21 10:48) (unknown) (no (unknown) (unknown) diazepam [From (units (unknown) date) VALIUM] Allergy unknown) (Unknown, Verified 08/11/21 10:48) (unknown) (no (unknown) (unknown) have occurred. (units (unknown) date) If there are any unknown) questions, please contact the Medical Records (unknown) (no (unknown) (unknown) occurred due to (units (unknown) date) the inherent unknown) limitations of voice recognition software. Please (unknown) (no (unknown) (unknown) read the note (units ( unknown) date) carefully and unknown) recognize, using context, where these substitutions (unknown) (no (unknown) (unknown) software. (units (unkn own) date) Although every unknown) effort is made to edit content, director of rehabilitation errors m Result panel 3 (unknown) (no date) (unknown) (unknown) Negative (units (unkn own) unknown) Result panel 4 (unknown) (no (unknown) (unknown) (no value) (units (unk nown) date) unknown) (unknown) (no (unknown) (unknown) [address] [place] [address] (units (unknown) date) unknown) (unknown) (no (unknown) (unknown) [place], [place] (units ( unknown) date) [id number] unknown) (unknown) (no (unknown) (unknown) [facility] (units (unknown) date) unknown) (unknown) (no (unknown) (unknown) Signed (units (unkno wn) date) unknown) (unknown) (no (unknown) (unknown) XRay Report (units (un known) date) unknown) (unknown) (no (unknown) (unknown) (no value) (units (unk nown) date) unknown) (unknown) (no (unknown) (unknown) 11/02/21 (units (unkno wn) date) unknown) (unknown) (no (unknown) (unknown) Approved by: (units (u nknown) date) Nader Dwons, unknown) Buzz on 11/02/2021 at 11:38 (unknown) (no (unknown) (unknown) COMPARISON: (units (un known) date) [facility] unknown) [facility], , XR L-SPINE 2-3V, 06/23/2021, 16:12. (unknown) (no (unknown) (unknown) Dictated by: (units (u nknown) date) juan Gerber) Buzz on 11/02/2021 at 11:38 (unknown) (no (unknown) (unknown) FINDINGS: (units (unkn own) date) unknown) (unknown) (no (unknown) (unknown) Fluoroscopic spot (units (unknown) date) filming was unknown) performed to verify placement of a spinal needle (unknown) (no (unknown) (unknown) [facility], MR, MR (units (unknown) date) LUMBAR SPINE WO unknown) CON, 07/26/2021, 12:53. (unknown) (no (unknown) (unknown) IMPRESSION: (units (un known) date) Intraprocedural unknown) examination within normal limits. (unknown) (no (unknown) (unknown) INDICATIONS: (units (u nknown) date) SPONDYLOSIS unknown) (unknown) (no (unknown) (unknown) L2-L3 level, as (units (unknown) date) labeled on the unknown) films. Appropriate location of the needle tip (unknown) (no (unknown) (unknown) confirmed by (units (u nknown) date) injection of unknown) iodinated contrast. (unknown) (no (unknown) (unknown) [id number] (units (unkno wn) date) unknown) (unknown) (no (unknown) (unknown) Accession Number: (units (unknown) date) [id number] unknown) (unknown) (no (unknown) (unknown) Age/Sex: 89 / F (units (unknown) date) Date of Service: unknown) (unknown) (no (unknown) (unknown) : 1930 (units (unknown) date) Acct:[id number] unknown) (unknown) (no (unknown) (unknown) [place] (units (unkno wn) date) unknown) (unknown) (no (unknown) (unknown) Loc: RAD (units (unkno wn) date) unknown) (unknown) (no (unknown) (unknown) Ordering (units (unkno wn) date) Provider: unknown) Amor Nguyen D.O. (unknown) (no (unknown) (unknown) PROCEDURE: PAIN (units (unknown) date) L/S TRANSFORAMINAL unknown) INJECT (unknown) (no (unknown) (unknown) Patient: (units (unkno wn) date) Sandra Newsome MR#: unknown) [id number] (unknown) (no (unknown) (unknown) Procedure: PAIN (units (unknown) date) l/s transforaminal unknown) inject (unknown) (no (unknown) (unknown) at the (units (unkno wn) date) unknown) (unknown) (no (unknown) (unknown) was (units (unkno wn) date) unknown) Result panel 5 (unknown) (no (unknown) (unknown) (no value) (units (unk nown) date) unknown) (unknown) (no (unknown) (unknown) Date of Service: (units (unknown) date) 11/02/21 unknown) (unknown) (no (unknown) (unknown) 11/02/21 1136 (units ( unknown) date) unknown) (unknown) (no (unknown) (unknown) [facility] (units (unknown) date) [address] unknown) [place] [address] (unknown) (no (unknown) (unknown) Procedure Note (units (unknown) date) unknown) (unknown) (no (unknown) (unknown) (no value) (units (unk nown) date) unknown) (unknown) (no (unknown) (unknown) 1. (units (unkno wn) date) FLUOROSCOPICALLY unknown) GUIDED CONTRAST CONTROLLED TRANSFORAMINAL EPIDURAL STEROID (unknown) (no (unknown) (unknown) [id number] (units (unkno wn) date) unknown) (unknown) (no (unknown) (unknown) After review of (units (unknown) date) previous unknown) anaesthesic history and IV conscious sedation the (unknown) (no (unknown) (unknown) Age/Sex: 89 / F (units (unknown) date) unknown) (unknown) (no (unknown) (unknown) Complications: (units (unknown) date) none unknown) (unknown) (no (unknown) (unknown) DESCRIPTION OF (units (unknown) date) PROCEDURE unknown) (unknown) (no (unknown) (unknown) : 1930 (units (unknown) date) Acct:[id number] unknown) (unknown) (no (unknown) (unknown) Date of procedure: (units (unknown) date) 11/02/21 unknown) (unknown) (no (unknown) (unknown) Date/Time/Diagnose (units (unknown) date) s unknown) (unknown) (no (unknown) (unknown) FINDINGS (units (unkno wn) date) unknown) (unknown) (no (unknown) (unknown) Following review (units (unknown) date) of allergy and unknown) review of potential side effects and (unknown) (no (unknown) (unknown) Foraminal Nerve (units (unknown) date) Root Compression unknown) secondary to disc disease and facet hypertrophy (unknown) (no (unknown) (unknown) INJECTION - RIGHT (units (unknown) date) L2/3 TFESI unknown) (unknown) (no (unknown) (unknown) In the prone (units (un known) date) position following unknown) sterile prep and drape of the lumbar region, the (unknown) (no (unknown) (unknown) Indications: (units (u nknown) date) unknown) (unknown) (no (unknown) (unknown) POST OP (units (unkno wn) date) INSTRUCTIONS unknown) (unknown) (no (unknown) (unknown) Patient: (units (unkno wn) date) Sandra Newsome MR#: unknown) [id number] (unknown) (no (unknown) (unknown) Physician: Amor (units (unknown) date) Patrick unknown) (unknown) (no (unknown) (unknown) Post-procedure (units (unknown) date) diagnosis: same unknown) (unknown) (no (unknown) (unknown) Pre-procedure (units ( unknown) date) diagnosis: 1. unknown) FORAMINAL STENOSIS WITH LE SYMPTOMS (unknown) (no (unknown) (unknown) Procedure Notes (units (unknown) date) unknown) (unknown) (no (unknown) (unknown) Procedure in (units (u nknown) date) detail + unknown) Post-procedure care: (unknown) (no (unknown) (unknown) Procedure: (units (unk nown) date) unknown) (unknown) (no (unknown) (unknown) Provider: (units (unkn own) date) Amor Nguyen D.O. unknown) (unknown) (no (unknown) (unknown) Radiological data, (units (unknown) date) including multiple unknown) fluoroscopic views of the lumbosacral (unknown) (no (unknown) (unknown) Sandra is referred (units (unknown) date) by AUGUSTINE Lynn for unknown) treatment of Foraminal Stenosis with right LE (unknown) (no (unknown) (unknown) Signed (units (unkno wn) date) By:<Electronically unknown) signed by Amor Nguyen D.O.> (unknown) (no (unknown) (unknown) Subsequent views (units (unknown) date) show flow of unknown) contrast material flowing superiorly and (unknown) (no (unknown) (unknown) Subsequently, a (units (unknown) date) test dose of 1.5 cc unknown) of 1% lidocaine solution was administered (unknown) (no (unknown) (unknown) Symptoms (units (unkno wn) date) unknown) (unknown) (no (unknown) (unknown) The patient (units (un known) date) tolerated the unknown) procedure well without signs or symptoms of (unknown) (no (unknown) (unknown) The patient was (units (unknown) date) provided a Pain Log unknown) to continue to record their response to the (unknown) (no (unknown) (unknown) The patient was (units (unknown) date) then transferred to unknown) the recovery area where they were observed (unknown) (no (unknown) (unknown) Time of procedure: (units (unknown) date) 11:34 unknown) (unknown) (no (unknown) (unknown) Total Fluoroscopy (units (unknown) date) time (seconds): 9 unknown) (unknown) (no (unknown) (unknown) Total sedation (units (unknown) date) minutes: 10 unknown) (unknown) (no (unknown) (unknown) accomplished with (units (unknown) date) a combination of unknown) 2mg of Versed was administered by the RN (unknown) (no (unknown) (unknown) advanced under (units (unknown) date) fluoroscopic unknown) guidance through the posterior right L2/3 (unknown) (no (unknown) (unknown) after DO order, (units (unknown) date) titrated to patient unknown) comfort during the course of the procedure (unknown) (no (unknown) (unknown) and agreed to (units ( unknown) date) proceed. An unknown) informed consent document was signed by the patient, (unknown) (no (unknown) (unknown) and patient was (units (unknown) date) observed for two unknown) minutes for signs or symptoms of complications, (unknown) (no (unknown) (unknown) anesthetized via a (units (unknown) date) 25-gauge 1.5-inch unknown) needle with 1% lidocaine solution. At this (unknown) (no (unknown) (unknown) approximately 1.5 (units (unknown) date) cc of Isovue 200 unknown) under live fluoroscopy in the AP view (unknown) (no (unknown) (unknown) shannon. (units (unkno wn) date) Additionally, unknown) specific post-injection care instructions and a contact (unknown) (no (unknown) (unknown) complications (units ( unknown) date) associated with the unknown) procedure are suspected. (unknown) (no (unknown) (unknown) complications (units ( unknown) date) prior to transfer unknown) to the recovery area continued monitoring (unknown) (no (unknown) (unknown) complications, (units (unknown) date) including, but not unknown) necessarily limited to, infection, allergic (unknown) (no (unknown) (unknown) confirmed (units (unkn own) date) excellent flow unknown) along the nerve root, into the epidural space without (unknown) (no (unknown) (unknown) confirmed on (units (u nknown) date) lateral view. unknown) Following negative aspiration, injection of (unknown) (no (unknown) (unknown) extremity (units (unkn own) date) weakness, nausea unknown) and vomiting, prior to steroid injection. At this (unknown) (no (unknown) (unknown) for an appropriate (units (unknown) date) time after the unknown) injection. The patient reported a VAS score (unknown) (no (unknown) (unknown) including (units (unkn own) date) abdominal pain, unknown) shortness of breath, bilateral upper or lower (unknown) (no (unknown) (unknown) inferiorly along (units (unknown) date) the nerve root unknown) confirming epidural flow. (unknown) (no (unknown) (unknown) injected without (units (unknown) date) incident. unknown) (unknown) (no (unknown) (unknown) neuroforamen to (units (unknown) date) approximately the unknown) anterior aspect of the canal. Depth was (unknown) (no (unknown) (unknown) number to our (units ( unknown) date) office were unknown) provided if concerns arise regarding possible (unknown) (no (unknown) (unknown) of 7 prior to the (units (unknown) date) procedure and a unknown) post-procedure VAS of 0. (unknown) (no (unknown) (unknown) paralysis, and (units ( unknown) date) possible , the unknown) patient indicated that the patient understood (unknown) (no (unknown) (unknown) patient ID, (units (un known) date) procedure to be unknown) performed and site of procedure. IV sedation was (unknown) (no (unknown) (unknown) patient was deemed (units (unknown) date) safe to proceed unknown) with today?s procedure with IV conscious (unknown) (no (unknown) (unknown) point, a 25-gauge (units (unknown) date) 3.5-inch spinal unknown) needle was atraumatically introduced and (unknown) (no (unknown) (unknown) point, a total of (units (unknown) date) 3cc or 20mg of unknown) dexamethasone and 6mg of betamethasone was (unknown) (no (unknown) (unknown) reaction, local (units (unknown) date) tissue breakdown, unknown) stroke, temporary or permanent nerve injury, (unknown) (no (unknown) (unknown) reviewed with the (units (unknown) date) patient. unknown) (unknown) (no (unknown) (unknown) right L2/3 (units (unkn own) date) posterior unknown) neuroforamen was identified fluoroscopically. The skin was (unknown) (no (unknown) (unknown) sedation as ASA (units (unknown) date) class II unknown) designation. Safety time-out was performed to confirm (unknown) (no (unknown) (unknown) spine, reveal a (units (unknown) date) spinal needle at unknown) the right L2/3 posterior neuroforamen. (unknown) (no (unknown) (unknown) target-specific (units (unknown) date) procedure prior to unknown) follow-up visit with their referring physi (unknown) (no (unknown) (unknown) treatment options (units (unknown) date) including unknown) medications, modalities, and physical therapy were (unknown) (no (unknown) (unknown) vascular or (units (un known) date) intrathecal uptake unknown) observed (unknown) (no (unknown) (unknown) while the patient (units (unknown) date) remained responsive unknown) to all verbal commands (unknown) (no (unknown) (unknown) without incident. (units (unknown) date) unknown) (unknown) (no (unknown) (unknown) witnessed by a (units (unknown) date) nurse, and placed unknown) in the patient's chart. Additionally, other Social History No information. Vital Signs No information.
[2021-12-08 00:27] LABS: BASOPHILS # (AUTO) 0.1 10^3/uL (0.0-0.1); BASOPHILS % (AUTO) 0.5 %; EOSINOPHILS # (AUTO) 0.2 10^3/uL (0.0-0.7); EOSINOPHILS % (AUTO) 1.7 %; HGB - HEMOGLOBIN 13.8 g/dL (12.0-16.0); LYMPHOCYTES # (AUTO) 1.4 10^3/uL (1.5-3.5); LYMPHOCYTES % (AUTO) 12.3 %; MEAN CORPUSCULAR HEMOGLOBIN 29.7 pg (27.0-31.0); MEAN CORPUSCULAR HGB CONC 32.9 g/dL (32.0-36.0); MEAN CORPUSCULAR VOLUME 90.3 fL (81.0-99.0); MEAN PLATELET VOLUME 10.7 fL (7.9-10.8); MONOCYTES # (AUTO) 1.4 10^3/uL (0.0-1.0); MONOCYTES % (AUTO) 12.3 %; NEUTROPHILS # (AUTO) 8.4 10^3/uL (1.5-6.6); NEUTROPHILS % (AUTO) 72.7 %; PLT - PLATELET COUNT 206 10^3/uL (130-450); RED BLOOD COUNT 4.65 10^6/uL (4.20-5.40); RED CELL DISTRIBUTION WIDTH 13.3 % (12.0-15.0); WHITE BLOOD COUNT 11.5 x10^3/uL (4.8-10.8)
[2021-12-08] MEDS ORDERED: SODIUM CHLORIDE 0.9% 1,000 ML IV STA (00:30)
[2021-12-08 00:36] LABS: ALBUMIN 3.7 g/dL (3.2-5.5); ALBUMIN/GLOBULIN RATIO 1.5 (1.0-2.2); BILIRUBIN,TOTAL 0.7 mg/dL (0.2-1.0); CALCIUM 9.6 mg/dL (8.5-10.3); CREATININE 1.2 mg/dL (0.4-1.0); POTASSIUM 3.8 mmol/L (3.5-5.0); TOTAL PROTEIN 6.2 g/dL (6.7-8.2)
--- NOTE | 2021-12-08 01:50 | ED Physician Documentation ---
PD HPI NVD - Stated complaint Stated Complaint: DIARRHEA - Chief complaint Chief Complaint: Abd Pain - History obtained from History obtained from: Patient, Family (Patient's daughter who is at the bedside) - Additonal information Additional information: Patient is an 89-year-old female presenting for evaluation of diarrhea that started this morning. Patient has had at least 10 episodes of loose watery stools. She denies nausea or vomiting but reports lower abdominal cramping. Her daughter had few episodes of diarrhea this morning but it has since improved. Patient has tried 2 doses of Imodium at home without significant improvement. While on the commode she did become Lightheaded and had a brief syncopal episode.Daughter witnessed the episode and there was no head injury or seizure-like activity. The patient did not have a postictal period.Patient denies recent antibiotic use. She had her daughter shared amount of Ketty sandwich yesterday.Patient has been able to tolerate p.o. intake today. Review of Systems Constitutional: denies: Fever Nose: denies: Congestion Throat: denies: Sore throat Cardiac: denies: Chest pain / pressure Respiratory: denies: Dyspnea, Cough GI: reports: Abdominal Pain, Diarrhea. denies: Nausea, Vomiting (Cramping) : denies: Dysuria Musculoskeletal: denies: Back pain Neurologic: reports: Syncope. denies: Headache, Head injury PD PAST MEDICAL HISTORY - Past Medical History Past Medical History: Yes Musculoskeletal: Osteoarthritis, Fibromyalgia - Past Surgical History Past Surgical History: Yes Ortho: Hip replacement, Spine surgery - Present Medications Home Medications: Ambulatory Orders Medication Instructions Recorded Confirmed Aspirin [Children's Aspirin] 81 mg PO DAILY 09/10/14 09/10/14 Hydrocodone/Acetaminophen 1 - 2 each PO Q6H PRN #15 tablet 09/10/14 [Hydrocodon-Acetaminophen 5-325] Losartan [Cozaar] 100 mg PO DAILY 09/10/14 09/10/14 Omeprazole 20 mg PO 09/10/14 09/10/14 Fidaxomicin [Dificid] 200 mg PO BID #20 tablet 12/08/21 - Allergies Allergies/Adverse Reactions: Allergies Allergy/AdvReac Type Severity Reaction Status Date / Time cimetidine [From [facility]] Allergy Unknown Verified 12/07/21 23:47 cimetidine HCl * Allergy Unknown Verified 09/20/22 23:47 [From [facility]] diazepam AdvReac Unknown Verified 12/07/21 23:47 - Social History Does the pt smoke?: No Smoking Status: Never smoker Does the pt drink ETOH?: No Does the pt have substance abuse?: No - Immunizations Immunizations are current?: Yes - POLST Patient has POLST: No PD ED PE NORMAL - General General: Alert and oriented X 3, No acute distress, Well developed/nourished - HEENT HEENT: Atraumatic, PERRL, EOMI, Moist mucous membranes - Neck Neck: Supple, no meningeal sign, No bony TTP - Cardiac Cardiac: RRR, No murmur, Strong equal pulses - Respiratory Respiratory: No respiratory distress, Clear bilaterally - Abdomen Abdomen: Normal bowel sounds, Soft, Non distended, Other (Mild lower abdominal tenderness to palpation bilaterally, no rebound, no masses, and no hernia) - Back Back: No CVA TTP - Derm Derm: No rash - Extremities Extremities: No edema - Neuro Neuro: Alert and oriented X 3, 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, No motor deficit, No sensory deficit, Normal speech Results - Vitals Vitals: Vital Signs - 24 hr 12/07/21 12/07/21 12/08/21 23:47 23:53 01:53 Temperature 36.5 C 36.5 C Heart Rate 88 88 79 Respiratory 16 16 17 Rate Blood Pressure 116/80 116/80 117/75 O2 Saturation 96 96 97 12/08/21 12/08/21 12/08/21 02:30 02:59 03:47 Temperature 36.5 C Heart Rate 77 76 Respiratory 16 18 16 Rate Blood Pressure 123/74 122/76 O2 Saturation 98 99 12/08/21 04:18 Temperature 36.5 C Heart Rate 72 Respiratory 16 Rate Blood Pressure 121/75 O2 Saturation 98 Oxygen O2 Source Room air - EKG (time done) 0118 Rate: Rate (enter#) (65) Rhythm: NSR Intervals: No: Prolonged QT (QTC 491) Ischemia: No: ST elevation c/w ischemia Compare to prior EKG: Old EKG unavailable - Labs Labs: Laboratory Tests 12/07/21 12/07/21 12/08/21 00:14 00:14 00:12 WBC 11.5 H RBC 4.65 Hgb 13.8 Hct 42.0 MCV 90.3 MCH 29.7 MCHC 32.9 RDW 13.3 Plt Count 206 MPV 10.7 Neut # (Auto) 8.4 H Lymph # (Auto) 1.4 L Swain # (Auto) 1.4 H Eos # (Auto) 0.2 Baso # (Auto) 0.1 Absolute Nucleated RBC 0.00 Nucleated RBC % 0.0 Sodium 140 Potassium 3.8 Chloride 105 Carbon Dioxide 26 Anion Gap 9.0 BUN 21 H Creatinine 1.2 H Estimated GFR (MDRD) 42 L Glucose 111 H Calcium 9.6 Total Bilirubin 0.7 AST 24 ALT 19 Alkaline Phosphatase 55 Total Protein 6.2 L Albumin 3.7 Globulin 2.5 Albumin/Globulin Ratio 1.5 Lipase 28 Stl C. diff Tox B Gene POSITIVE A* PD MEDICAL DECISION MAKING - ED course Complexity details: reviewed results, re-evaluated patient, d/w patient, d/w family ED course: Patient presenting for evaluation of 1 day history of diarrhea. Labs reviewed. CT obtained demonstrating pancolitis. A stool culture and C. difficile are pending. Offered continued observation until C. difficile results but patient is feeling better despite having few loose stools while here and would like to wait at home. She is tolerating p.o. and is able to ambulate. She did have a brief syncopal episode while on the toilet earlier. EKG is reassuring without a rrhythmia. Exam does not suggest a stroke or intracranial process.Patient feels better after IV hydration. 0406 - Patient reports that she is feeling better. Reviewed CT findings. I offered observation in the emergency department until C. difficile results but patient prefers to go home and will be notified of a positive result. Daughter is at the bedside and will be with her. 0542 - Patient is C. difficile positive. I discussed these findings with her daughter, Manda over the phone. They understand the treatment plan with fidaxomicin And I have sent this prescription to [facility] in [place] which is their preferred pharmacy. I again reiterated that that they should return to the emergency department with any concerning or worsening symptoms as well as arrange for close follow-up with her primary care doctor. Departure - Departure Disposition: 01 Home, Self Care Clinical Impression: C. difficile diarrhea Condition: Stable Instructions: ED Diet Vomiting Diarrhea Follow-Up: Lynn,Reta A, PA [Primary Care Provider] - Prescriptions: Fidaxomicin [Dificid] 200 mg PO BID #20 tablet Comments: You were evaluated for diarrhea and found to have inflammation of your colon called pancolitis. We have sent a stool sample For a culture as well as to check for an infection called C. difficile. If it is positive for C. difficile I will notify you and send in a prescription for an antibiotic. You may continue to use Imodium but do not exceed 16 mg/24 hr period. Discharge Date/Time: 12/08/21 04:18
[2021-12-08] MEDS ORDERED: LOPERAMIDE 2 MG CAPSULE PO STA (03:29)
[2021-12-08 04:19] VITALS: BP 121/75
--- NOTE | 2021-12-08 09:46 | CT Report ---
PROCEDURE: Abdomen/Pelvis W INDICATIONS: R sided pain/diarrhea CONTRAST: IV CONTRAST: Optiray 320 ml: 100 PO CONTRAST: *NO PO CONTRAST TECHNIQUE: After the administration of intravenous contrast, 5 mm thick sections acquired from the diaphragms to the symphysis. 5 mm thick coronal and sagittal reformats were acquired. For radiation dose reducti on, the following was used: automated exposure control, adjustment of mA and/or kV according to shelli ent size. COMPARISON: CT abdomen and pelvis with, 04/30/2021 and . FINDINGS: Image quality: Excellent. ABDOMEN: Lung bases: Bilateral subpleural septal thickening and mild pulmonary fibrosis at lung bases. Heart size is normal. There is mild coronary calcification. Solid organs: Liver and spleen are normal in size and enhancement. Gallbladder is mildly distended. No gallstones. Biliary system is non dilated. Pancreatic atrophy is noted. Pancreas enhances maeve lly. No adrenal nodules. Kidneys demonstrate normal size and enhancement, without hydronephrosis. Peritoneum and bowel: Mild diffuse colonic wall thickening. Bowel loops demonstrate normal caliber. There is a duodenal diverticulum in the mesenteric aspect of the duodenal C-sweep There are numerous colonic diverticula. No CT findings to suggest acute diverticulitis. No free fluid or air. Nodes and vessels: No retroperitoneal or mesenteric adenopathy by size criteria. Aorta and inferior vena cava are normal in size. Severe atherosclerotic calcifications. Mild infrarenal fusiform ectas ia of abdominal aorta measuring 2.5 cm. Miscellaneous: No ventral hernias. PELVIS: Genitourinary: Bladder wall thickness is normal. Miscellaneous: No inguinal hernias or adenopathy. Bones: No suspicious bony lesions. No vertebral body compression fractures. Degenerative and posts urgical changes in lumbar spine. IMPRESSION: 1. Mild diffuse colonic wall thickening consistent with colitis. The finding may be secondary to infl ammatory bowel disease or infection. Ischemic colitis is felt less likely. 2. Diverticulosis. No acute diverticulitis. 3. Atherosclerosis. 4. Mildly distended gallbladder. No radiopaque gallstones. 5. Bilateral subpleural septal thickening and mild perineural fibrosis. No significant discrepancy with the preliminary interpretation. Reviewed by: Altaf Wong MD on 12/08/2021 9:45 AM PDT Approved by: Altaf Wong MD on 12/08/2021 9:45 AM PDT Station ID: [id number]
== END 2021-12-08 04:18 | disposition home or self-care (01) ==
LOC: ED 23:45
DX: A04.72 Enterocolitis due to Clostridium difficile, not specified as recurrent (principal); R55 Syncope and collapse
CPT/HCPCS: 36415; 74177; 80053; 83690; 85025; 87045; 87046; 87427; 87493; 93005; 96360; 96361; 99284; A9270; Q9967

== ENCOUNTER 2022-01-08 11:00 | Outpatient (CLI) | payer MEDICARE, OTHER ==
[2022-01-11 16:08] LABS: GIARDIA LAMBLIA AG EIA Negative (Negative)
[2022-01-14 15:08] LABS: OVA + PARASITE EXAM Final report (.)
== END 2022-01-08 23:59 | disposition home or self-care (01) ==
LOC: LAB.N 11:00
PROVIDERS: ATTEND Physician Assistant
DX: R19.7 Diarrhea, unspecified (principal)
CPT/HCPCS: 87045; 87046; 87177; 87209; 87329; 87427; 87493